=== PATIENT | female | born 1995 | race Caucasian/White ===

== ENCOUNTER 2016-06-06 15:45 | Emergency (ER) | payer OTHER ==
[~2016-06-06] VITALS: Ht 182.9 cm; Wt 90.0 kg
[~2016-06-06 15:45] MED LIST: SULF1TAB47 PO; Z.0.NO CURRENT MEDS
[2016-06-06 15:47] VITALS: BP 124/73; PULSE 76; RESP 20; O2SAT 100
--- NOTE | 2016-06-06 16:14 | PD ---
Physical Exam Date Seen by Provider: Jun 06, 2016 Time Seen by Provider: 16:09 Narrative 20 y/o female presents with abdominal pain for 3 weeks. has seen luggage repairer, Dr Henriquez and was scheduled for HIDA scan on June 24. Pain is worsening and located across upper abdomin. No urinary symptoms. No fever. Pain worse 2 hours after eating. U/S was negative 4 days ago at [facility] which was Neg. has been on Hycosamine and Prilosec with no improvement. denies . Pain 06/24 now. V/S stable Waiting for bed. Data Data Last Documented VS Vital Signs Date Time Temp Pulse Resp B/P Pulse Ox O2 Delivery O2 Flow Rate FiO2 06/06/16 15:47 76 20 124/73 100 Room Air [facility] Medical Record Reviewed: Yes Supervised Visit with MANUEL: Yes Condition: Stable Rom Christiansen Jun 06, 2016 16:14
[2016-06-06] MEDS ORDERED: SODIUM CHLOR 0.9% 1000 ML INJ 1,000 ML IV SCH (16:38)
[2016-06-06] MEDS ORDERED: FAMOTIDINE 20 MG/2 ML VIAL IV PUSH ONE (16:45)
[2016-06-06] MEDS ORDERED: ALUMINUM/MAGNESIUM/SIMETH 30 ML CUP PO ONE (16:45)
[2016-06-06] MEDS ORDERED: LIDOCAINE VISCOUS 2% SOLN 15 ML UDC PO ONE (16:45)
[2016-06-06] MEDS ORDERED: ONDANSETRON HCL 4 MG/2 ML VIAL IVP ONE (16:45)
[2016-06-06] MEDS ORDERED: MORPHINE SULFATE 4 MG/ML INJ IV PUSH ONE (16:45)
--- NOTE | 2016-06-06 17:29 | PD ---
HPI Chief Complaint: Abdominal Pain Time Seen by Provider: 17:24 Travel History International Travel<30 days: No Contact w/Intl Traveler<30days: No Traveled to known affect area: No History of Present Illness HPI 20-year-old female that presents to the ED for evaluation of epigastric pain. Per patient she's had this for about 3 weeks now. Per patient she follows with the gastrologist Dr. Headley and had an ultrasound and some lab work done on Wednesday. Per patient she was given some medication which seemed to help but today the pain came back with a vengeance and she is more painful. Per patient she is scheduled to have a HIDA scan to see if she has any gallbladder issues. Per patient is scheduled until next week. Per patient she was told by the doctor to discuss either peptic ulcer disease versus gallbladder issues. Per patient the pain gets worse with eating. Per patient usually happens 2 hours after she ate. She denies any chest pain or shortness of breath. Per patient the pain currently is 5 out of 10. Per patient she's taking the medication prescribed to her by her doctor but doesn't seem to be helping much. She denies any fevers chills or sweats. No bowel movement issues. No urinary issues. She called her GI doctor who recommended that she comes here. PFSH Past Medical History Diminished Hearing: No ?: Not LMP: 05/06/2016 Social History Alcohol Use: No Tobacco Use: No Allergies-Medications (Allergen,Severity, Reaction): Coded Allergies: No Known Allergies (Verified , 06/06/16) Reported Meds & Prescriptions Reported Meds & Active Scripts Active Reported Symax Duotab (Hyoscyamine Sulfate) 0.375 Mg Tab 0.375 Mg PO Q12HR PRN Review of Systems Except as stated in HPI: all other systems reviewed are Neg Physical Exam Narrative GENERAL: SKIN: Warm and dry. HEAD: Atraumatic. Normocephalic. EYES: Pupils equal and round. No scleral icterus. No injection or drainage. ENT: No nasal bleeding or discharge. Mucous membranes pink and moist. Tongue is midline. No uvula deviation. NECK: Trachea midline. No JVD. CARDIOVASCULAR: Regular rate and rhythm. No murmurs, S3, S4. RESPIRATORY: No accessory muscle use. Clear to auscultation. Breath sounds equal bilaterally. GASTROINTESTINAL: Abdomen soft, tender to palpation on the right upper quadrant as well as the left upper quadrant and epigastric area. More painful in the epigastric area however., nondistended. Hepatic and splenic margins not palpable. MUSCULOSKELETAL: Extremities without clubbing, cyanosis, or edema. No obvious deformities. Full range of motion of the upper and lower extremities bilaterally. 2+ pulses bilaterally. NEUROLOGICAL: Awake and alert. No obvious cranial nerve deficits. Motor grossly within normal limits. Five out of 5 muscle strength in the arms and legs. Normal speech. PSYCHIATRIC: Appropriate mood and affect; insight and judgment normal. Data Data Last Documented VS Vital Signs Date Time Temp Pulse Resp B/P Pulse Ox O2 Delivery O2 Flow Rate FiO2 06/06/16 18:29 17 06/06/16 15:47 76 124/73 100 Room Air Orders Urinalysis - C+S If Indicated (06/06/16 16:17) Ed Urine Pregnancytest Poc (06/06/16 16:17) Complete Blood Count With Diff (06/06/16 16:38) Comprehensive Metabolic Panel (06/06/16 16:38) Lipase (06/06/16 16:38) Iv Access Insert/Monitor (06/06/16 16:38) Morphine Inj (Morphine Inj) (06/06/16 16:45) Ondansetron Inj (Zofran Inj) (06/06/16 16:45) Sodium Chlor 0.9% 1000 Ml Inj (Ns 1000 M (06/06/16 16:38) Famotidine Inj (Pepcid Inj) (06/06/16 16:45) Al-Mag Hy-Si 40-40-4 Mg/Ml Liq (Mag-Al P (06/06/16 16:45) Lidocaine 2% Viscous (Xylocaine 2% Visco (06/06/16 16:45) Ct Abd/Pel W Iv Contrast(Rout) (06/06/16 ) Iohexol 350 Inj (Omnipaque 350 Inj) (06/06/16 19:20) Biliary Quant (W/O Cck) (06/06/16 ) Labs Laboratory Tests Test 06/06/16 06/06/16 16:45 17:00 Urine Color COLORLESS Urine Turbidity CLEAR Urine pH 6.5 Urine Specific [place] 1.002 Urine Protein NEG mg/dL Urine Glucose (UA) NEG mg/dL Urine Ketones NEG mg/dL Urine Occult Blood NEG Urine Nitrite NEG Urine Bilirubin NEG Urine Urobilinogen LESS THAN 2.0 MG/DL Urine Leukocyte Esterase NEG Urine RBC LESS THAN 1 /hpf Urine WBC LESS THAN 1 /hpf Urine Bacteria RARE /hpf Urine Mucus FEW /lpf Microscopic Urinalysis Comment CULT NOT INDICATED White Blood Count 7.5 TH/MM3 Red Blood Count 5.16 MIL/MM3 Hemoglobin 13.8 GM/DL Hematocrit 41.1 % Mean Corpuscular Volume 79.7 FL Mean Corpuscular Hemoglobin 26.7 PG Mean Corpuscular Hemoglobin 33.5 % Concent Red Cell Distribution Width 14.3 % Platelet Count 188 TH/MM3 Mean Platelet Volume 9.2 FL Neutrophils (%) (Auto) 68.7 % Lymphocytes (%) (Auto) 19.3 % Monocytes (%) (Auto) 4.8 % Eosinophils (%) (Auto) 6.6 % Basophils (%) (Auto) 0.6 % Neutrophils # (Auto) 5.2 TH/MM3 Lymphocytes # (Auto) 1.4 TH/MM3 Monocytes # (Auto) 0.4 TH/MM3 Eosinophils # (Auto) 0.5 TH/MM3 Basophils # (Auto) 0.0 TH/MM3 CBC Comment DIFF FINAL Differential Comment Sodium Level 140 MEQ/L Potassium Level 3.2 MEQ/L Chloride Level 105 MEQ/L Carbon Dioxide Level 26.0 MEQ/L Anion Gap 9 MEQ/L Blood Urea Nitrogen 8 MG/DL Creatinine 0.71 MG/DL Estimat Glomerular Filtration 104 ML/MIN Rate Random Glucose 96 MG/DL Calcium Level 9.0 MG/DL Total Bilirubin 0.3 MG/DL Aspartate Amino Transf 22 U/L (AST/SGOT) Alanine Aminotransferase 39 U/L (ALT/SGPT) Alkaline Phosphatase 44 U/L Total Protein 7.2 GM/DL Albumin 4.1 GM/DL Lipase 80 U/L [facility] Medical Decision Making Medical Screen Exam Complete: Yes Emergency Medical Condition: Yes Medical Record Reviewed: Yes Interpretation(s) CBC & BMP Diagram 06/06/16 17:00 Last Impressions Abdomen/Pelvis CT 06/06/16 0000 Signed Impressions: Service Date/Time: Monday, June 06, 2016 19:21 - CONCLUSION: 1. Small amount free fluid in the cul-de-sac. Prominence of the adnexa on both sides suggests bilateral ovarian cysts. 2. Otherwise negative exam. Dominic Vernon MD LFTS and lipase negative Differential Diagnosis Gallbladder problems versus cholecystitis versus pancreatitis versus peptic ulcer disease versus gastritis Narrative Course 20-year-old female that presents to the ED for evaluation of epigastric pain. Patient was properly examined and was found to have signs and symptoms consistent appears to be epigastric pain. Return to this time. Patient is every being worked up by her GI doctor. I recommend labs and imaging. Patient was given pain meds and fluids. Initial labs and imaging show no sign of acute disease. I spoke with the patient's GI doctor Dr. Headley who recommended that because of patient's symptoms that we do the HIDA scan to make sure patient does not have biliary disease. This was discussed with the patient who is in agreement with following with plan. Before I could get the HIDA scan results I sign of the patient to my attending who was made aware of all findings and recommendations. He was given Dr Headley phone number to let him know of results. Condition: Stable Jaxon Bo Jun 06, 2016 17:29
[2016-06-06 17:30] LABS: AUTOMATED NEUTROPHIL # 5.2 TH/MM3 (1.8-7.7); BASOPHIL % 0.6 % (0.0-2.0); EOSINOPHIL # 0.5 TH/MM3 (0-0.4); EOSINOPHIL % 6.6 % (0.0-4.0); HEMATOCRIT 41.1 % (35.0-46.0); HEMO FLAGS DIFF FINAL; LYMPH % 19.3 % (9.0-44.0); LYMPHOCYTE # 1.4 TH/MM3 (1.0-4.8); MEAN CELL VOLUME 79.7 FL (80.0-100.0); MEAN CORPUSCULAR HEMOGLOBIN 26.7 PG (27.0-34.0); MEAN CORPUSCULAR HGB CONC 33.5 % (32.0-36.0); MONO % 4.8 % (0.0-8.0); NEUT % 68.7 % (16.0-70.0); PLATELET COUNT 188 TH/MM3 (150-450); RED BLOOD COUNT 5.16 MIL/MM3 (4.00-5.30); RED CELL DISTRIBUTION WIDTH 14.3 % (11.6-17.2); WHITE BLOOD COUNT 7.5 TH/MM3 (4.0-11.0)
[2016-06-06 17:46] LABS: BACTERIA, URINE RARE /hpf; BLOOD, URINE NEG (NEG); COMMENT (UR) CULT NOT INDICATED; CULTURE IF INDICATED CULT NOT INDICATED; GLUCOSE,URINE NEG (NEG); KETONE, URINE NEG (NEG); MUCUS URINE FEW /lpf (OCC); NITRITE,URINE NEG (NEG); PH, URINE 6.5 (5.0-8.5); URINE COLOR COLORLESS (YELLW/STRAW)
[2016-06-06 17:54] LABS: ANION GAP 9 MEQ/L (5-15); AST (GOT) 22 U/L (15-37); BLOOD UREA NITROGEN 8 MG/DL (7-18); CHLORIDE 105 MEQ/L (98-107); GLOMERULAR FILTRATION RATE 104 ML/MIN (>89); POTASSIUM 3.2 MEQ/L (3.5-5.1); SODIUM (NA) 140 MEQ/L (136-145)
[2016-06-06 17:57] LABS: ALKALINE PHOSPHATASE 44 U/L (45-117); ALT (GPT) 39 U/L (10-53); TOTAL BILIRUBIN ADULT 0.3 MG/DL (0.2-1.0)
[2016-06-06 18:29] VITALS: RESP 17
[2016-06-06] MEDS ORDERED: SYMATAB PO (19:19)
[2016-06-06] MEDS ORDERED: IOHEXOL 350 MG/ML 10 ML VIAL (for RAD DIAG) IV ONE (19:20)
--- NOTE | 2016-06-06 20:11 | RADRPT ---
EXAM DATE/TIME: 06/06/2016 19:21 [facility] COMPARISON: No previous studies available for comparison. INDICATIONS : Epigastric pain. IV CONTRAST: 95 cc Omnipaque 350 (iohexol) IV ORAL CONTRAST: No oral contrast ingested. RADIATION DOSE: 11.17 CTDIvol (mGy) MEDICAL HISTORY : None SURGICAL HISTORY : None. ENCOUNTER: Initial ACUITY: 3 weeks PAIN SCALE: 5/10 LOCATION: Bilateral upper quadrant TECHNIQUE: Volumetric scanning of the abdomen and pelvis was performed. Using automated exposure control and ad justment of the mA and/or kV according to patient size, radiation dose was kept as low as reasonably achievable to obtain optimal diagnostic quality images. FINDINGS: LOWER LUNGS: The visualized lower lungs are clear. LIVER: Homogeneous density without lesion. There is no dilation of the biliary tree. No calcified gallston es. SPLEEN: Normal size without lesion. PANCREAS: Within normal limits. KIDNEYS: Normal in size and shape. There is no mass, stone or hydronephrosis. ADRENAL GLANDS: Within normal limits. VASCULAR: There is no aortic aneurysm. Incidental note of retroaortic left renal vein. BOWEL/MESENTERY: The stomach, small bowel, and colon demonstrate no acute abnormality. There is no free intraperitone al air or fluid. ABDOMINAL WALL: Within normal limits. RETROPERITONEUM: There is no lymphadenopathy. BLADDER: No wall thickening or mass. REPRODUCTIVE: Homogeneous enhancement in the myometrium of the uterus. Prominent endometrial cavity suggesting pro liferative phase. Prominence of both adnexal regions. Small amount of free fluid in the cul-de-sac. INGUINAL: There is no lymphadenopathy or hernia. MUSCULOSKELETAL: Within normal limits for patient age. CONCLUSION: 1. Small amount free fluid in the cul-de-sac. Prominence of the adnexa on both sides suggests bilate ral ovarian cysts. 2. Otherwise negative exam. Dominic Vernon MD on June 06, 2016 at 20:07 Board Certified Radiologist. This report was verified electronically.
--- NOTE | 2016-06-06 21:54 | PD ---
Data Data Last Documented VS Vital Signs Date Time Temp Pulse Resp B/P Pulse Ox O2 Delivery O2 Flow Rate FiO2 06/06/16 18:29 17 06/06/16 15:47 76 124/73 100 Room Air Orders Urinalysis - C+S If Indicated (06/06/16 16:17) Ed Urine Pregnancytest Poc (06/06/16 16:17) Complete Blood Count With Diff (06/06/16 16:38) Comprehensive Metabolic Panel (06/06/16 16:38) Lipase (06/06/16 16:38) Iv Access Insert/Monitor (06/06/16 16:38) Morphine Inj (Morphine Inj) (06/06/16 16:45) Ondansetron Inj (Zofran Inj) (06/06/16 16:45) Sodium Chlor 0.9% 1000 Ml Inj (Ns 1000 M (06/06/16 16:38) Famotidine Inj (Pepcid Inj) (06/06/16 16:45) Al-Mag Hy-Si 40-40-4 Mg/Ml Liq (Mag-Al P (06/06/16 16:45) Lidocaine 2% Viscous (Xylocaine 2% Visco (06/06/16 16:45) Ct Abd/Pel W Iv Contrast(Rout) (06/06/16 ) Iohexol 350 Inj (Omnipaque 350 Inj) (06/06/16 19:20) Biliary Quant (W/O Cck) (06/06/16 ) Labs Laboratory Tests Test 06/06/16 06/06/16 16:45 17:00 Urine Color COLORLESS Urine Turbidity CLEAR Urine pH 6.5 Urine Specific [place] 1.002 Urine Protein NEG mg/dL Urine Glucose (UA) NEG mg/dL Urine Ketones NEG mg/dL Urine Occult Blood NEG Urine Nitrite NEG Urine Bilirubin NEG Urine Urobilinogen LESS THAN 2.0 MG/DL Urine Leukocyte Esterase NEG Urine RBC LESS THAN 1 /hpf Urine WBC LESS THAN 1 /hpf Urine Bacteria RARE /hpf Urine Mucus FEW /lpf Microscopic Urinalysis Comment CULT NOT INDICATED White Blood Count 7.5 TH/MM3 Red Blood Count 5.16 MIL/MM3 Hemoglobin 13.8 GM/DL Hematocrit 41.1 % Mean Corpuscular Volume 79.7 FL Mean Corpuscular Hemoglobin 26.7 PG Mean Corpuscular Hemoglobin 33.5 % Concent Red Cell Distribution Width 14.3 % Platelet Count 188 TH/MM3 Mean Platelet Volume 9.2 FL Neutrophils (%) (Auto) 68.7 % Lymphocytes (%) (Auto) 19.3 % Monocytes (%) (Auto) 4.8 % Eosinophils (%) (Auto) 6.6 % Basophils (%) (Auto) 0.6 % Neutrophils # (Auto) 5.2 TH/MM3 Lymphocytes # (Auto) 1.4 TH/MM3 Monocytes # (Auto) 0.4 TH/MM3 Eosinophils # (Auto) 0.5 TH/MM3 Basophils # (Auto) 0.0 TH/MM3 CBC Comment DIFF FINAL Differential Comment Sodium Level 140 MEQ/L Potassium Level 3.2 MEQ/L Chloride Level 105 MEQ/L Carbon Dioxide Level 26.0 MEQ/L Anion Gap 9 MEQ/L Blood Urea Nitrogen 8 MG/DL Creatinine 0.71 MG/DL Estimat Glomerular Filtration 104 ML/MIN Rate Random Glucose 96 MG/DL Calcium Level 9.0 MG/DL Total Bilirubin 0.3 MG/DL Aspartate Amino Transf 22 U/L (AST/SGOT) Alanine Aminotransferase 39 U/L (ALT/SGPT) Alkaline Phosphatase 44 U/L Total Protein 7.2 GM/DL Albumin 4.1 GM/DL Lipase 80 U/L [facility] Supervised Visit with MANUEL: No Narrative Course Patient was signed out to me by Jaxon HAYWOOD at the end of his shift at 2100. I've been aware of this patient during her workup unfortunate have not had the opportunity to examine her. Patient is presenting with epigastric and right upper quadrant abdominal pain. The BP is been coordinating with the patient's material handler Dr. Headley who requested that the patient have a HIDA scan prior to discharge. HIDA scan has been ordered and currently the patient is in nuclear med for the test. Patient was discussed with Dr. Bejarano who is my relief at 2130 who will follow- up the HIDA scan and disposition properly. Patient Instructions: General Instructions Departure Forms: Tests/Procedures Condition: Stable Atul Espinoza MD Jun 06, 2016 21:54
--- NOTE | 2016-06-06 22:25 | RADRPT ---
EXAM DATE/TIME: 06/06/2016 20:49 [facility] COMPARISON: No previous studies available for comparison. INDICATIONS : Right upper quadrant pain with nausea and vomiting. DOSE: 4.1 mCi Tc99m Mebrofenin IV MEDICAL HISTORY : None SURGICAL HISTORY : None. ENCOUNTER: Initial ACUITY: 3 days PAIN SCALE: 5/10 LOCATION: Right upper quadrant TECHNIQUE: Following the intravenous administration of radiotracer, dynamic sequential images were performed wit h continuous acquisition. FINDINGS: HEPATIC KINETICS: There is prompt uptake of radiotracer in the liver. No focal defects are seen. There is normal rate of washout from the hepatic parenchyma. BILIARY CLEARANCE: Activity is first seen in the extrahepatic biliary system at 13 minutes. There is normal excretion i nto the small bowel. GALLBLADDER: Activity is first seen in the gallbladder at 20 minutes. BILIARY ENTRIC REFLUX: None observed. CONCLUSION: Prompt visualization of the gallbladder excludes cystic duct obstruction. Normal rate of washout of radiotracer from the hepatic parenchyma. Dominic Vernon MD on June 06, 2016 at 22:21 Board Certified Radiologist. This report was verified electronically.
[2016-06-06] MEDS ORDERED: PROT40TA PO (22:40)
--- NOTE | 2016-06-06 22:41 | PD ---
Data Data Last Documented VS Vital Signs Date Time Temp Pulse Resp B/P Pulse Ox O2 Delivery O2 Flow Rate FiO2 06/06/16 18:29 17 06/06/16 15:47 76 124/73 100 Room Air Orders Urinalysis - C+S If Indicated (06/06/16 16:17) Ed Urine Pregnancytest Poc (06/06/16 16:17) Complete Blood Count With Diff (06/06/16 16:38) Comprehensive Metabolic Panel (06/06/16 16:38) Lipase (06/06/16 16:38) Iv Access Insert/Monitor (06/06/16 16:38) Morphine Inj (Morphine Inj) (06/06/16 16:45) Ondansetron Inj (Zofran Inj) (06/06/16 16:45) Sodium Chlor 0.9% 1000 Ml Inj (Ns 1000 M (06/06/16 16:38) Famotidine Inj (Pepcid Inj) (06/06/16 16:45) Al-Mag Hy-Si 40-40-4 Mg/Ml Liq (Mag-Al P (06/06/16 16:45) Lidocaine 2% Viscous (Xylocaine 2% Visco (06/06/16 16:45) Ct Abd/Pel W Iv Contrast(Rout) (06/06/16 ) Iohexol 350 Inj (Omnipaque 350 Inj) (06/06/16 19:20) Biliary Quant (W/O Cck) (06/06/16 ) Ketorolac Inj (Toradol Inj) (06/06/16 22:45) Labs Laboratory Tests Test 06/06/16 06/06/16 16:45 17:00 Urine Color COLORLESS Urine Turbidity CLEAR Urine pH 6.5 Urine Specific [place] 1.002 Urine Protein NEG mg/dL Urine Glucose (UA) NEG mg/dL Urine Ketones NEG mg/dL Urine Occult Blood NEG Urine Nitrite NEG Urine Bilirubin NEG Urine Urobilinogen LESS THAN 2.0 MG/DL Urine Leukocyte Esterase NEG Urine RBC LESS THAN 1 /hpf Urine WBC LESS THAN 1 /hpf Urine Bacteria RARE /hpf Urine Mucus FEW /lpf Microscopic Urinalysis Comment CULT NOT INDICATED White Blood Count 7.5 TH/MM3 Red Blood Count 5.16 MIL/MM3 Hemoglobin 13.8 GM/DL Hematocrit 41.1 % Mean Corpuscular Volume 79.7 FL Mean Corpuscular Hemoglobin 26.7 PG Mean Corpuscular Hemoglobin 33.5 % Concent Red Cell Distribution Width 14.3 % Platelet Count 188 TH/MM3 Mean Platelet Volume 9.2 FL Neutrophils (%) (Auto) 68.7 % Lymphocytes (%) (Auto) 19.3 % Monocytes (%) (Auto) 4.8 % Eosinophils (%) (Auto) 6.6 % Basophils (%) (Auto) 0.6 % Neutrophils # (Auto) 5.2 TH/MM3 Lymphocytes # (Auto) 1.4 TH/MM3 Monocytes # (Auto) 0.4 TH/MM3 Eosinophils # (Auto) 0.5 TH/MM3 Basophils # (Auto) 0.0 TH/MM3 CBC Comment DIFF FINAL Differential Comment Sodium Level 140 MEQ/L Potassium Level 3.2 MEQ/L Chloride Level 105 MEQ/L Carbon Dioxide Level 26.0 MEQ/L Anion Gap 9 MEQ/L Blood Urea Nitrogen 8 MG/DL Creatinine 0.71 MG/DL Estimat Glomerular Filtration 104 ML/MIN Rate Random Glucose 96 MG/DL Calcium Level 9.0 MG/DL Total Bilirubin 0.3 MG/DL Aspartate Amino Transf 22 U/L (AST/SGOT) Alanine Aminotransferase 39 U/L (ALT/SGPT) Alkaline Phosphatase 44 U/L Total Protein 7.2 GM/DL Albumin 4.1 GM/DL Lipase 80 U/L [facility] Supervised Visit with MANUEL: No Narrative Course Patient signout to me by previous provider. Please see associated note for further details. In short patient is a 20-year-old female with 3 weeks of epigastric abdominal discomfort followed by GI. Negative ultrasound and blood work done just 24-48 hours ago. Patient states that she was given some sort of medication that helped, but her symptoms came back with "a vengeance". She was scheduled to have a HIDA scan but doesn't feel as though she can wait. Previous provider spoke with her GI physician who recommended hiatus scan to be performed here. Patient has arty had laboratory workup including CBC, CMP, lipase, urinalysis and CT scan of the abdomen and pelvis was negative. Patient signed out to me pending HIDA scan results. Patient returned from HIDA scan, symptomatically feeling improved. She still having a slight amount of pain, given a dose of Toradol here. I spoke with her GI physician, Dr. Headley, who agrees with institution of PPI for outpatient an outpatient endoscopy for evaluation of peptic ulcer disease versus gastritis. Diagnosis Primary Impression: Epigastric abdominal pain Referrals: Laboratory Veterinarian call for appointment Patient Instructions: General Instructions Departure Forms: Tests/Procedures Additional Instruction: Laboratory workup including blood and urine, CT abdomen and pelvis, HIDA scan today were all normal. Antacid as prescribed. Follow-up with GI physician as discussed for outpatient endoscopy to evaluate for gastritis versus peptic ulcer. Med/Other Pt SpecificInfo: Prescription(s) given Scripts Pantoprazole (Protonix)40 Mg Tab40 Mg PO DAILY #30 TAB Ref 0 Prov:Miesha Stockton MD 06/06/16 Disposition: 01 DISCHARGE HOME Condition: Stable Miesha Stockton MD Jun 06, 2016 22:41
[2016-06-06] MEDS ORDERED: KETOROLAC TROMETHAMINE 30 MG/ML (IVP) VIAL IV PUSH ONE (22:45)
== END 2016-06-06 22:57 | disposition home or self-care (01) ==
LOC: NEPD 15:45
DX: R10.13 Epigastric pain (principal)
CPT/HCPCS: 74177; 78226; 80053; 81001; 83690; 84703; 85025; 96361; 96374; 96375; 99284; A9537; J1885; J2270; J2405; J7030; Q9967